=== PATIENT | female | born 2005 | race African-American/Black ===

== ENCOUNTER 2024-02-24 01:32 | Emergency (ER) | payer OTHER ==
[2024-02-24] MEDS: LIDOCAINE 5% PATCH TOP ONE (03:06)
[2024-02-24] MEDS: KETOROLAC 30MG/ML VIAL IM ONE (03:06)
[2024-02-24] MEDS: ACETAMINOPHEN 325MG TABLET PO ONE (03:06)
[2024-02-24] MEDS ORDERED: IBUP-2029 MT (03:27)
[2024-02-24 03:41] LABS: HCG SCREEN NEGATIVE
[2024-02-24 05:00] VITALS: BP 125/63; PULSE 70; RESP 16; TEMP 36.94740; O2SAT 100
[2024-02-24] MEDS ORDERED: BACL-141 MT (05:32)
[2024-02-24] MEDS: DEXAMETHASONE 10 MG/ML VIAL IM NR (05:45)
== END 2024-02-24 05:55 | disposition home or self-care (01) ==
LOC: ER 01:32 → EDBD 01:32 → ER 05:55
DX: M54.50 Low back pain, unspecified (principal); V49.59XA Passenger injured in collision with other motor vehicles in traffic accident, initial encounter; Y93.89 Activity, other specified; Y92.89 Other specified places as the place of occurrence of the external cause; Y99.8 Other external cause status
CPT/HCPCS: 99285; 72131; 84703; 96372; J1100; J1885